=== PATIENT | male | born 1985 | race Caucasian/White ===

== ENCOUNTER 2024-06-02 22:45 | Emergency (ER) | payer BC ==
[~2024-06-02] VITALS: Ht 180.3 cm; Wt 78.0 kg
[2024-06-02 22:50] VITALS: PULSE 90; RESP 15; TEMP 98.3; O2SAT 98
[2024-06-02] MEDS: benzonatate 100mg capsule PO ONE (23:41)
[2024-06-02] MEDS: guaiFENesin ER 600mg tablet PO SCH (23:41)
--- NOTE | 2024-06-03 00:47 | Physician Documentation ---
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 He reports having congestion, a cough, general body aches, chills, and general malaise. No objective fever. No abdominal pain, nausea vomiting or diarrhea. Medication Reconciliation Allergies: Coded Allergies: No Known Allergies (Unverified , 06/02/24) Scheduled Benzonatate* (Benzonatate*), 1 CAP PO Q8H Past Medical History Smoking Status: Never smoker Review of Systems Constitutional: Reports: chills; Denies: fever ENT: Reports: nose congestion Respiratory: Reports: cough Physical Exam Vital Signs: Temperature: 98.3, Source: Temporal, Heart Rate: 90, Respiratory Rate: 15, Pulse Oximetry: 98, Weight: 78.000 Physical Exam General: This is a healthy-appearing young man lying in bed, no coughing noted during my exam HEENT: Atraumatic, wearing a mask Heart: Mild tachycardic, appears regular Lungs: Clear breath sounds bilateral, normal work of breathing, normal oxygen saturation on room air Abdomen: Soft, nondistended, nontender all quadrants Neuro: Alert and oriented, no focal deficits Psychiatric: Calm and cooperative with exam Progress Results/Orders Results/Orders Orders - LOLA SWANN MD Covid19 Binax Poc Result Entry (06/02/24 23:04) Completed Orders - LOLA SWANN MD Influenza Type A&B Rapid Test (06/02/24 23:04) Benzonatate Capsule (Tessalon Perles Cap (06/02/24 23:25) Guaifenesin Er Tablet (Mucinex Tablet) (06/02/24 23:30) Medications Received in ER Medications (Trade) Dose Ordered Sig/Yi Route PRN Reason Start Time Stop Time Status Last Admin Dose Admin (Tessalon Perles capsule) 200 mg ONCE ONCE PO 06/02/24 23:25 06/02/24 23:27 DC 06/02/24 23:41 200 MG (MuciNEX tablet) 1,200 mg Q12H PO 06/02/24 23:30 06/02/24 23:31 DC 06/02/24 23:41 1,200 MG Vital Signs 06/02/24 22:50 Temp 98.3 Pulse 90 Resp 15 Pulse Ox 98 Laboratory Tests Test 06/02/24 23:00 Influenza Type A (Rapid) Negative Influenza Type B (Rapid) Negative SARS-CoV-2 Antigen (Rapid) Positive A Medical Decision Making Differential Dx:Considerations: Include: Influenza, Pharyngitis-Viral, Pneumonia, URI, Other Differential Diagnosis Other viral syndrome Assessment The patient presents with 1 day of symptoms that all seem most consistent with a viral syndrome. He has no findings to suggest pneumonia or other dangerous infection requiring antibiotics. Viral swabs are positive for COVID-19. This appears consistent with his presentation. I do not feel that any further workup or testing is indicated. He will be treated with cough medications and other symptomatic treatment and given a work note. Departure Time of Disposition: 00:53 Disposition: 01 HOME / SELF CARE / HOMELESS Impression: Primary Impression: COVID-19 Condition: Stable Discharge Instructions: Upper Respiratory Infection, Adult Departure Forms: Excuse form Work or School Excused From: Work Excuse beginning now through the following date: Jun 05, 2024 May Return but still avoid physical Activity from now until: Jun 05, 2024 Referrals: NO PRIMARY CARE PROVIDER (PCP) Prescriptions Benzonatate* (Benzonatate*) 100 Mg Capsule 1 CAP PO Q8H for cough for 10 Days, #30 CAP Prov: LOLA SWANN MD 06/03/24 Comments You tested positive for COVID-19. Please use anti-inflammatories, cough and cold medications, drink plenty of fluids and get plenty of rest. Education Educated: Patient Educated regarding: diagnosis, treatment Signature Scribe Signature: [email or web address] Attestation: LOLA Estrada MD Jun 03, 2024 00:46
[2024-06-03] MEDS ORDERED: BENZ-38 PO (00:55)
== END 2024-06-03 01:07 | disposition home or self-care (01) ==
LOC: ER 22:46
DX: U07.1 COVID-19 (principal); Z79.899 Other long term (current) drug therapy
CPT/HCPCS: 36415; 87502; 87503; 87811; 99283

== ENCOUNTER 2024-06-14 15:55 | Inpatient (IN) | payer BC ==
[~2024-06-14] VITALS: Ht 180.3 cm; Wt 125.6 kg
[~2024-06-14 15:55] MED LIST: BENZ-38 PO
--- NOTE | 2024-06-14 16:03 | ELECTROCARDIOGRAPH REPORT ---
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 Xiang Sparks Measurements Intervals [place] Rate: 185 P: 0 SD: 0 QRS: 240 QRSD: 86 T: 28 QT: 267 QTc: 469 Interpretive Statements Atrial fibrillation with rapid V-rate Ventricular premature complex Left anterior fascicular block Abnormal R-wave progression, late transition Baseline wander in lead(s) V1,V2 Electronically Signed On 06-15-2024 17:20:[address] Xiang Sparks Please click the below link to view image of tracing.
[2024-06-14 16:22] LABS: BASOPHILS # (AUTO) 0.1 X10'3 (0-0.2); BASOPHILS % (AUTO) 0.9 % (0-1); EOSINOPHILS # (AUTO) 0.1 X10'3 (0-0.9); EOSINOPHILS % (AUTO) 1.1 % (0-6); HEMATOCRIT 45.9 % (42.0-52.0); HEMOGLOBIN 15.9 g/dl (14.0-17.9); LYMPHOCYTES # (AUTO) 2.7 X10'3 (1.1-4.8); MEAN CORPUSCULAR HEMOGLOBIN 30.3 PG (27.0-31.0); MEAN CORPUSCULAR HGB CONC 34.6 g/dL (33.0-36.5); MEAN CORPUSCULAR VOLUME 87.7 FL (78-98); MEAN PLATELET VOLUME 8.3 FL (7.4-10.4); MONOCYTES # (AUTO) 1.1 X10'3 (0-0.9); MONOCYTES % (AUTO) 13.7 % (2-12); NEUTROPHILS # (AUTO) 4.2 X10'3 (1.8-7.7); NEUTROPHILS % (AUTO) 51.3 % (42-75); PLATELET COUNT 321 X10'3 (140-440); RED BLOOD COUNT 5.24 X10'6 (4.70-6.10); WHITE BLOOD COUNT 8.1 X10'3 (4.5-11.0)
--- NOTE | 2024-06-14 16:28 | Physician Documentation ---
History of Present Illness ~ Chief Complaint: Palpitations Stated Complaint: AFIB Time Seen by MD: 16:13 Source: patient, RN/ HPI 39-year-old male no pertinent history presenting for rapid heart rate. He awoke from his daytime sleep with acute onset palpitations and shortness of breath. This began around 3:00 p.m. tonight. He has no history of similar symptoms. Denies any other symptoms. No leg pain or swelling. No anticoagulation. He has strong family history of AFib including in his brother Medication Reconciliation Allergies: Coded Allergies: No Known Allergies (Unverified , 06/14/24) Discontinued Medications Benzonatate* (Benzonatate*), 1 CAP PO Q8H Discontinued Reason: Auto Discontinued Review of Systems All Other Systems at this time: Reviewed and Negative Respiratory: Denies: shortness of breath Cardiovascular: Denies: chest pain Physical Exam Vital Signs: Temperature: 98.0, Heart Rate: 185, Respiratory Rate: 16, BP: 146/93, Pulse Oximetry: 96, Weight: 125.600 Physical Exam Diaphoretic Cardiac irregular rate no murmur Respiratory clear to auscultation bilaterally Lower extremity no edema Neuro awake alert oriented Procedures Cardioversion Cardioversion : Medications: Fentanyl Joules: 200 Resulting Rhythm: NSR Tolerated Procedure Well?: yes, no complications Progress Progress Note d/w hospitalist resident who agrees with plan for admission Results/Orders Results/Orders Orders - HALEY RIBEIRO MD Chest,Single View (06/14/24 15:59) Monitor (06/14/24 15:59) Saline Lock (06/14/24 15:59) Oxygen (06/14/24 15:59) Urinalysis (06/14/24 19:27) Page Hospitalist (06/14/24 19:57) Fill Out Med Reconciliation (06/14/24 19:57) Completed Orders - HALEY RIBEIRO MD Chest,Single View (06/14/24 15:59) Cbc/Diff (06/14/24 15:59) PBNP (06/14/24 15:59) Electrocardiogram (06/14/24 15:59) CMP (06/14/24 15:59) Hs Troponin I W Calculations (06/14/24 15:59) Hs Troponin I W Calculations (06/14/24 17:59) Hs Troponin I W Calculations (06/14/24 18:59) Diltiazem Iv (Cardizem Iv 5mg/Ml Inj.) (06/14/24 16:30) Fentanyl/Pf (Fentanyl 0.05 Mg/Ml Syringe (06/14/24 17:35) Ringers Solution, Lacted (Lactated Ringe (06/14/24 17:55) Etomidate Inj (Amidate Inj) (06/14/24 17:55) MG (06/14/24 16:15) TSH (06/14/24 16:15) Medications Received in ER Medications (Trade) Dose Ordered Sig/Yi Route PRN Reason Start Time Stop Time Status Last Admin Dose Admin (Cardizem IV 5mg/ ml inj.) 31 mg ONCE ONCE IV 06/14/24 16:30 06/14/24 16:31 DC 06/14/24 16:38 31 MG Lactated Ringer's 1,000 ml @ 1,000 mls/hr ONCE ONCE IV 06/14/24 17:55 06/14/24 18:54 DC 06/14/24 18:20 1,000 MLS/HR Vital Signs 06/14/24 06/14/24 06/14/24 06/14/24 16:03 16:15 16:30 16:38 Temp 98.0 Pulse 185 145 159 165 Resp 16 15 15 B/P (MAP) 146/93 131/106 (114) 115/81 (92) 131/106 Pulse Ox 96 97 96 O2 Flow Rate 0 0 06/14/24 06/14/24 06/14/24 06/14/24 16:55 16:57 17:20 18:07 Pulse 100 110 150 Resp 15 16 12 B/P (MAP) 125/66 (85) 117/84 (95) 131/91 Pulse Ox 97 98 98 O2 Delivery Nasal Cannula O2 Flow Rate 2.0 0 2.0 06/14/24 06/14/24 06/14/24 06/14/24 18:14 18:19 18:29 18:44 Pulse 120 105 98 76 Resp 18 18 12 13 B/P (MAP) 175/116 (135) 133/89 (104) 121/78 (92) Pulse Ox 94 98 98 95 O2 Delivery Nasal Cannula Nasal Cannula Nasal Cannula Room Air O2 Flow Rate 2.0 2.0 0 0 Laboratory Tests Test 06/14/24 16:15 06/14/24 18:20 06/14/24 19:13 White Blood Count 8.1 Red Blood Count 5.24 Hemoglobin 15.9 Hematocrit 45.9 Mean Corpuscular Volume 87.7 Mean Corpuscular Hemoglobin 30.3 Mean Corpuscular Hemoglobin Concent 34.6 Red Cell Distribution Width 13.0 Platelet Count 321 Mean Platelet Volume 8.3 Neutrophils (%) (Auto) 51.3 Lymphocytes (%) (Auto) 33.0 Monocytes (%) (Auto) 13.7 H Eosinophils (%) (Auto) 1.1 Basophils (%) (Auto) 0.9 Neutrophils # (Auto) 4.2 Lymphocytes # (Auto) 2.7 Monocytes # (Auto) 1.1 H Eosinophils # (Auto) 0.1 Basophils # (Auto) 0.1 CBC Comment Sodium Level 135 Potassium Level 4.0 Chloride Level 99 Carbon Dioxide Level 17.1 L Anion Gap 19 H Blood Urea Nitrogen 19 H Creatinine 1.26 H Estimated GFR/1.73 m2 64 BUN/Creatinine Ratio 15.1 Glucose Level 557 *H Calcium Level 8.8 Magnesium Level 1.9 Total Bilirubin 0.3 Aspartate Amino Transf (AST/SGOT) 32 Alanine Aminotransferase (ALT/SGPT) 56 Alkaline Phosphatase 177 H Troponin I High Sensitivity 4 6 7 Pro-B-Type Natriuretic Peptide < 30 Total Protein 7.0 Albumin 3.5 Globulin 3.5 Albumin/Globulin Ratio 1.0 L Thyroid Stimulating Hormone (TSH) 1.24 Chemistry Comments Troponin I High Sens Percent Delta 50 16 Troponin I Hi Sens Absolute Change 2 1 EKG/XRAY/CT/US/VASC/MRI EKG : Additional Comment EKG independently interpreted by myself time 4:01 p.m. indication palpitations atrial fibrillation RVR rate 185 normal axis normal intervals no ST or T-wave abnormalities Repeat EKG time 6:17 p.m. indication cardioversion sinus rhythm rate 100 normal axis normal intervals no ST or T-wave abnormalities Medical Decision Making Additional Information Atrial fibrillation, hyperglycemia Departure Disposition: ADMITTED INPATIENT Admitted to Inpatient Unit: to hospitalist Impression: Primary Impression: Afib Qualified Codes: I48.0 - Paroxysmal atrial fibrillation Additional Impressions: Atrial fibrillation with RVR Hyperglycemia DKA (diabetic ketoacidosis) Qualified Codes: E13.10 - Other specified diabetes mellitus with ketoacidos is without coma Additional Instructions: Please call your primary care physician in the morning to discuss outpatient management of your high blood sugar as well as your new onset atrial fibrillation. If you have any reoccurrence of your symptoms please return to the emergency department. Referrals: NO PRIMARY CARE PROVIDER (PCP) Critical Care Note Total Time (mins): 30 Critical Care Note The very real possibility of a deterioration of this patient's condition required the highest level of my preparedness for sudden, emergent intervention. I provided critical care services, which included medication orders, frequent reevaluations of the patient's condition and response to treatment, ordering and reviewing test results, and discussing the case with various consultants. Excludes time spent performing separately billable procedures. The critical care time associated with the care of the patient was 30 minutes in the management of new onset atrial fibrillation with RVR requiring cardioversion Signature Scribe Signature: ankit Attestation: HALEY Franklin MD June 14, 2024 16:28
[2024-06-14] MEDS: diltiazem 5mg/ml 5ml inj. IV ONE (16:38)
[2024-06-14 16:52] LABS: ALANINE AMINOTRANSFERASE 56 U/L (12-78); ALBUMIN 3.5 G/DL (3.4-5.0); ALKALINE PHOSPHATASE 177 IU/L (46-116); ANION GAP 19 (8-16); BILIRUBIN,TOTAL 0.3 MG/DL (0.1-1.0); BLOOD UREA NITROGEN 19 MG/DL (7-18); BUN/CREATININE RATIO 15.1 (10.0-20.0); CALCIUM 8.8 MG/DL (8.5-10.1); CHLORIDE 99 MMOL/L (99-107); CREATININE 1.26 MG/DL (0.60-1.10); PRO BRAIN NATRIURETIC PEPTIDE < 30 PG/ML (0-125); SODIUM 135 MMOL/L (135-145); TOTAL CARBON DIOXIDE 17.1 MMOL/L (24-32); eCRCL 85 ML/MIN; eGFR 64 ML/MIN
--- NOTE | 2024-06-14 17:02 | RADIOLOGY REPORT ---
CHEST RADIOGRAPH Indication: CP Technique: Single frontal view of the chest was obtained COMPARISON: None FINDINGS: Lines and Tubes: None Lungs: Clear Pleura: No effusion. No pneumothorax. Cardiomediastinal contours: Unremarkable Bones: Unremarkable IMPRESSION: No acute disease.
[2024-06-14 17:43] LABS: ASPARTATE AMINO TRANSFERASE 32 U/L (10-37)
[2024-06-14 17:45] LABS: GLUCOSE 557 MG/DL (70-104)
[2024-06-14] MEDS: fentaNYL/PF 50MCG/1 ML 2ML syringe IV ONE (18:19)
[2024-06-14] MEDS: ringers solution, lacted 1,000 ML IV ONE (18:20)
[2024-06-14] MEDS: etomidate 2mg/ml inj. IV ONE (18:20)
[2024-06-14 19:44] LABS: MAGNESIUM 1.9 MG/DL (1.5-2.4); THYROID STIMULATING HORMONE 1.24 ulU/ml (0.34-4.50)
[2024-06-14] MEDS ORDERED: magnesium sulf-water 4G/100mL 100 ML IV PRN (20:05)
[2024-06-14] MEDS ORDERED: magnesium sulf-water 2g/50mL 50 ML IV PRN (20:05)
[2024-06-14] MEDS ORDERED: magnesium hydroxide 30ml (MOM) UD suspension PO PRN (20:05)
[2024-06-14] MEDS ORDERED: potassium Cl 40MEQ/1/2NS 520ml 520 ML IV PRN (20:05)
[2024-06-14] MEDS ORDERED: magnesium Cl slow-release 64mg tablet PO PRN (20:05)
[2024-06-14] MEDS ORDERED: acetaminophen 325mg tablet PO PRN (20:05)
[2024-06-14] MEDS ORDERED: potassium Cl 20 mEq SR tablet PO PRN (20:05)
[2024-06-14] MEDS ORDERED: mag hydrox/Alum hydrox/simeth 30ml oral suspension PO PRN (20:05)
[2024-06-14] MEDS ORDERED: ondansetron/PF 4mg/2ml inj IV PRN (20:05)
[2024-06-14] MEDS ORDERED: morphine 2 MG/ML inj. syringe IV PRN ×2 (20:05)
[2024-06-14] MEDS: normal saline 1000ml 1,000 ML IV SCH (20:17)
[2024-06-14] MEDS ORDERED: TOPI-95 PO (20:30)
[2024-06-14] MEDS ORDERED: INDLA60C PO (20:30)
[2024-06-14 20:39] LABS: BILIRUBIN,URINE NEGATIVE (Neg); CLARITY,URINE CLEAR (Clear); COLOR,URINE YELLOW (Yellow); GLUCOSE, URINE >=1000 mg/dl (Neg); KETONES,URINE 15 mg/dl (Neg); LEUKOCYTE ESTERASE ,URINE NEGATIVE (Neg); NITRITES, URINE NEGATIVE (Neg); OCCULT BLOOD,URINE NEGATIVE (Neg); PH,URINE 5.5 (4.8-8.0); PROTEIN,URINE NEGATIVE (Neg); UROBILINOGEN,URINE 0.2 E.U/dL (0.2-1.0)
[2024-06-14 20:43] LABS: UA COLLECTION TYPE URINAL
[2024-06-14 20:46] LABS: BACTERIA,URINE NONE SEEN /HPF (Neg); RBC,URINE NONE SEEN /HPF (0-2); SQUAMOUS EPITHELIAL CELL,UR NONE SEEN /LPF (FEW); WBC,URINE NONE SEEN /HPF (0-4)
--- NOTE | 2024-06-14 21:23 | HISTORY AND PHYSICAL-Residence ---
History & Physical Providers to CC Resident Creating Document: MEY HAYADRIÁN LIZETH, RES ~ History of Present Illness Primary Medical Doctor: Dr. Akshat ROBINS [facility] Reason for Admit\Complaint: Palpitations History of Present Illness PCP: Dr. Akshat ROBINS [facility] 39-year-old male patient with past medical history of essential tremors came to the hospital with chief complaint of palpitations. The patient mentioned that during the afternoon he experienced palpitations who woke him up while he was resting. The patient normally follows his house rate with his phone and watch, and as soon as he evidenced this palpitations he noted a heart rate of 165. Associated to these palpitations the patient endorses mild chest tightness which subsided after his heart rate was controlled. As per patient this is the 1st time that he has experienced symptoms like these. The patient currently denies any chest pain, palpitations, shortness of breaths, urinary or intestinal symptoms. Allergies: Coded Allergies: No Known Allergies (Unverified , 06/14/24) Home Medications Home Medications Active Reported Topiramate 50 Mg Tablet 1 Tab PO BID Propranolol HCl 60 Mg Cap.sa.24h 1 Cap PO DAILY Past Medical History Past Medical History Essential tremors taking topiramate and propranolol. Past Surgical History Surgical History Comment None Past Social History Smoking: Quit greater than 1 year (The patient quit smoking four years ago. He used to smoke two packs a week for 16 years.) Alcohol Use: None (He used to drink socially. His last drink was one and half year ago) Drug Use: None Lives with: Other (Brother) Lives In: Home Occupation: employed ROS All Other Systems: Reviewed and Negative Respiratory: Denies: shortness of breath Cardiovascular: Denies: chest pain Exam Vitals: Vital Signs Date Time Temp Pulse Resp B/P (MAP) Pulse Ox O2 Delivery O2 Flow Rate FiO2 06/14/24 20:18 76 16 146/95 (112) 98 0 06/14/24 18:44 Room Air 06/14/24 16:03 98.0 Physical exam: General: Well alert, well oriented, not confused, not agitated, not in acute distress, well cooperated during the physical. HEENT: Conjunctive are pink, sclerae clear, no icterus, pupil is equal in both sides, reactive to light, no ear discharge, no pharyngeal erythema or an edema. Neck: Supple, no JVD, no lymphadenopathy and thyromegaly. Chest: Equal air entry on both lungs, no additional sounds no rhonchi no wheezing at the moment. Cardiovascular: S1-S2 regular sinus rhythm and, regular rate, no gallops, no rubs, no murmurs Abdomen: No visible peristalsis, Bowel sounds present on auscultation, soft, nontender, no guarding, no rigidity Extremities: No obvious deformities, no pitting edema bilaterally, capillary refill intact, peripheral pulsations are intact on both sides Central Nervous System: No focal neurological deficits, no motor or sensory weakness in all 4 extremities, could move all 4 extremities, 2+ deep tendon reflexes, negative Babinski. Musculoskeletal: No joint swelling, deformities, inflammations, and no scoliosis and back tenderness Skin: Warm and dry. Diagnostic Data Last Recorded Lab Results: 06/14/24 1615 06/14/24 1615 Advance Care Planning Advanced Care plannin - 30 Minutes (I spent a total of 17 minutes on reviewing various resuscitative measures/ACP with the patient at the time of admission. The patient has decided on a full code status.) Additional Plan Assessment and plan: 39-year-old male patient came to the hospital with chief complaint of palpitations. AFib with RVR: Chads Vasc score: 1 Pulmonary embolism-ruled out: The patient came to the hospital with chief complaint of palpitations. The patient underwent cardioversion in the emergency department and converted to sinus rhythm. Current heart rate 61. D-dimer: 0.37. The current indication for anticoagulation. Metoprolol succinate 25 mg daily. Uncontrolled diabetes mellitus: Diabetic ketoacidosis: Initial cause levels 557. Carbon dioxide 17.1, anion gap 19. Presence of ketones in urine. Hemoglobin A1c 10.5. Diabetic ketoacidosis protocol in place. Hypertriglyceridemia: Triglycerides 601. Gemfibrozil 600 mg b.i.d. Acute kidney injury likely secondary to renal tubular stasis: Creatinine 1.26, BUN/creatinine ratio 15.1. GFR 64 Follow-up urine lytes. LR at 250 mL/hour. Code status: Full code DVT prophylaxis: SCDs Analgesia/sedation: Morphine Line/tube: PIV GI prophylaxis: None Nutrition: Heart healthy diet PT: No Prognosis: Guarded Disposition: The patient will be admitted to PCU. Adrián Hay Internal Medicine Resident [facility] Date of Service: June 14, 2024 Billing Provider: MARY JOY MD,ADRIÁN STANLEY, RES June 14, 2024 21:23
[2024-06-14] MEDS ORDERED: glucagon, human recombinant 1mg kit SUBCUT PRN (22:55)
[2024-06-14] MEDS ORDERED: DEXTROSE 15 GM of carb/4 tabs (each vial/BOTTLE has 4 tablets) PO PRN ×2 (22:55)
[2024-06-14] MEDS ORDERED: dextrose 50%-water 50ml dispensing syringe IV PRN ×2 (22:55)
[2024-06-14 23:00] VITALS: BP 129/69; PULSE 70; RESP 16; TEMP 97.4; O2SAT 97
[2024-06-14 23:15] VITALS: RESP 16; O2SAT 97
[2024-06-14 23:15] LABS: HEMOGLOBIN A1C 10.5 % (4.5-6.2)
[2024-06-14 23:17] LABS: CHOL/HDL RATIO 5.3 (0.00-4.99); CHOLESTEROL 185 MG/DL (0-200); HDL CHOLESTEROL 35 MG/DL (35-60); LDL CHOLESTEROL 100 MG/DL (50-100); TRIGLYCERIDES 601 MG/DL (20-135)
[2024-06-14] MEDS: insulin glargine (Lantus) pen - multi-dose SQ SCH (23:54)
[2024-06-15] VITALS (8 sets, daily range): BP systolic 113–132; BP diastolic 63–83; PULSE 75–91; RESP 14–19; TEMP 97.7–98.3; O2SAT 96–99
[2024-06-15 01:32] LABS: D-DIMER 0.37 MG/L FEU (0-0.50)
[2024-06-15] MEDS ORDERED: sodium phosphate inj. 15 MMOL in dextrose 5%-water 250 ML IV PRN (01:45)
[2024-06-15] MEDS ORDERED: dextrose 50%-water 50ml dispensing syringe IV PRN ×3 (01:45→08:15)
[2024-06-15] MEDS ORDERED: potassium Cl 40MEQ/270ML bag 270 ML IV PRN (01:45)
[2024-06-15 01:52] LABS: ABG OXYGEN SATURATION 96.1 % (94.0-98.0); ABG PCO2 (T) 31.1 mmHg (35.0-48.0); ABG PH (T) 7.379 (7.350-7.450); ABG PO2 (T) 81.4 mmHg (83.0-108.0); ALLEN'S TEST Modified; FCOHb 0.4 % (0.5-1.5); FHHb 3.9 % (0.0-5.0); FMetHb 0.3 % (0.0-1.5); FO2Hb 95.4 % (94.0-98.0); MODE ROOM AIR; PATIENT TEMPERATURE 36.7; TOTAL HEMOGLOBIN 14.3 G/dl (13.5-17.5)
[2024-06-15 03:26] LABS: MAGNESIUM 1.6 MG/DL (1.5-2.4); PHOSPHORUS 3.3 MG/DL (2.3-4.5)
[2024-06-15] MEDS: Insulin Reg/NS 100units/100mL 100 ML IV SCH (03:41)
[2024-06-15] MEDS: ringers solution, lacted 1,000 ML IV SCH (03:43)
[2024-06-15] MEDS: potassium Cl 40MEQ/1/2NS 520ml 520 ML IV PRN (03:49)
[2024-06-15] MEDS: potassium CL 10mEq/100ml bag 100 ML IV ONE (04:32)
[2024-06-15] MEDS: magnesium sulf-water 2g/50mL 50 ML IV PRN (05:23)
[2024-06-15] MEDS ORDERED: INSULIN LISPRO 100 UNIT/ML INSULN.PEN MULTI-DOSE SQ SCH (07:00)
[2024-06-15 07:17] LABS: BASOPHILS # (AUTO) 0.1 X10'3 (0-0.2); BASOPHILS % (AUTO) 0.8 % (0-1); EOSINOPHILS # (AUTO) 0.1 X10'3 (0-0.9); EOSINOPHILS % (AUTO) 1.2 % (0-6); HEMATOCRIT 42.6 % (42.0-52.0); HEMOGLOBIN 14.7 g/dl (14.0-17.9); LYMPHOCYTES # (AUTO) 2.6 X10'3 (1.1-4.8); LYMPHOCYTES % (AUTO) 32.4 % (21-51); MEAN CORPUSCULAR HEMOGLOBIN 29.8 PG (27.0-31.0); MEAN CORPUSCULAR HGB CONC 34.5 g/dL (33.0-36.5); MEAN CORPUSCULAR VOLUME 86.4 FL (78-98); MEAN PLATELET VOLUME 8.1 FL (7.4-10.4); MONOCYTES % (AUTO) 12.1 % (2-12); NEUTROPHILS # (AUTO) 4.3 X10'3 (1.8-7.7); NEUTROPHILS % (AUTO) 53.5 % (42-75); PLATELET COUNT 302 X10'3 (140-440); RED BLOOD COUNT 4.93 X10'6 (4.70-6.10); RED CELL DISTRIBUTION WIDTH 13.3 % (11.5-14.5)
[2024-06-15 07:37] LABS: ALANINE AMINOTRANSFERASE 53 U/L (12-78); ALBUMIN 3.1 G/DL (3.4-5.0); ALKALINE PHOSPHATASE 110 IU/L (46-116); ANION GAP 9 (8-16); ASPARTATE AMINO TRANSFERASE 25 U/L (10-37); BILIRUBIN,TOTAL 0.3 MG/DL (0.1-1.0); BLOOD UREA NITROGEN 13 MG/DL (7-18); CALCIUM 8.2 MG/DL (8.5-10.1); CHLORIDE 110 MMOL/L (99-107); CREATININE 1.08 MG/DL (0.60-1.10); GLUCOSE 107 MG/DL (70-104); MAGNESIUM 2.2 MG/DL (1.5-2.4); POTASSIUM 3.4 MMOL/L (3.5-5.1); SODIUM 141 MMOL/L (135-145); TOTAL CARBON DIOXIDE 21.9 MMOL/L (24-32); TOTAL PROTEIN 6.3 G/DL (6.4-8.2); eCRCL 100 ML/MIN; eGFR 77 ML/MIN
[2024-06-15] MEDS: metoprolol succinate 25mg (24-HOUR) SR. Tablet PO SCH (07:53)
[2024-06-15] MEDS: gemfibrozil 600mg tablet PO SCH (07:53)
[2024-06-15] MEDS: docusate sod 100mg capsule PO SCH (07:54)
[2024-06-15] MEDS: K and/or MAG REPLACEMENT MC SCH (08:00)
[2024-06-15] MEDS ORDERED: OMEGA-3/DHA/EPA/FISH OIL 1 EACH CAPSULE.DR PO SCH (08:00)
[2024-06-15] MEDS ORDERED: DEXTROSE 15 GM of carb/4 tabs (each vial/BOTTLE has 4 tablets) PO PRN ×2 (08:15)
[2024-06-15] MEDS ORDERED: glucagon, human recombinant 1mg kit SUBCUT PRN (08:15)
[2024-06-15] MEDS: INSULIN LISPRO 100 UNIT/ML INSULN.PEN MULTI-DOSE SQ SCH ×2 (08:59→17:42)
[2024-06-15] MEDS: potassium Cl 20 mEq SR tablet PO PRN (10:00)
[2024-06-15 10:15] LABS: PHOSPHORUS 1.9 MG/DL (2.3-4.5)
--- NOTE | 2024-06-15 16:47 | CARDIOLOGY REPORT ---
APPROVED REPORT EXAM: Comprehensive 2D, Doppler, and color-flow Echocardiogram. 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 161.5 cm/s AoV VTI 28.9 cm AO Peak GR. 10.4 mmHg AO Mean GR. 5 mmHg LVOT VTI 25.80 cm LVOT Peak Toan. 123.5 cm/s REBECCA(VTI)/BSA 3.09 cm2/m2 REBECCA (VTI) 3.09 cm2 Mitral Valve MV E Velocity 104.5 cm/s MV Peak Gr. 7 mmHg MV DECEL TIME 216 ms MV A Velocity 46.9 cm/s MV PHT 56 ms E/A Ratio 2.2 MVA (PHT) 3.93 cm2 MV ARyd808.1 cm/s TDI Lateral E' P. V14.83 cm/s E/Lateral E' 7.0 Tricuspid Valve TR P. Velocity 230 cm/s RAP ESTIMATE 10 mmHg TR Peak Gr. 21 mmHg RVSP 31 mmHg LEFT VENTRICLE Normal LV size and wall thickness. Overall systolic function is normal. LVEF is 70-75%. RIGHT VENTRICLE Right ventricle is mildly dilated with adequate function. ATRIA Left atrium is mildly dilated. AORTIC VALVE Trileaflet AV appears mildly sclerotic without stenosis. No insufficiency. MITRAL VALVE Mild mitral annular calcification without stenosis. Trace regurgitation. TRICUSPID VALVE The tricuspid valve is normal in structure with trace regurgitation. PULMONIC VALVE The pulmonary valve is normal in structure with physiologic insufficiency. GREAT VESSELS The aortic root is normal in size. The ascending aorta is normal in size. IVC is normal in size. PERICARDIUM Normal pericardium. No effusion. Other Information Study Quality: Adequate
--- NOTE | 2024-06-15 18:45 | PROGRESS NOTE ---
Daily Progress Note Providers to CC ~ Antibiotic Timeout Antibiotic Ordered?: No Subjective The patient feels better though he is rather tired- I did speak at length to the patient about the complications of diabetes and did speak to the patient about watching out for high glucose foods including corn, rice and grains and potatoes. Patient has had a DKA in his in the sinus rhythm since being cardioverted Objective Vital Signs Date Time Temp Pulse Resp B/P (MAP) Pulse Ox O2 Delivery O2 Flow Rate FiO2 06/15/24 15:19 97.7 80 17 124/63 (83) 98 Room Air 06/15/24 08:00 0.0 Result Diagram: 06/15/24 0647 06/15/24 0647 Gen. No acute distress alert and oriented 4 Lungs clear to ascultation bilaterally, no wheezes rales or rhonchi appreciated Heart normal sinus rhythm no murmurs rubs or clicks noted Abdomen soft nontender bowel sounds are normoactive Lower extremities no clubbing cyanosis, nor edema appreciated bilaterally Coagulation Studies Laboratory Tests Test 06/15/24 01:10 D-Dimer 0.37 MG/L FEU (0-0.50) D-Dimer Comment Problem\Assessment\Plan Problems/Diagnosis: (1) Atrial fibrillation with RVR # AFib RVR- cardioverted now in sinus rhythm Chads Vasc2 score of 1 thus no need for anticoagulation at this time Metoprolol succinate 25 mg daily started # DKA On the DKA protocol is out of DKA # new onset diabetes mellitus Hemoglobin A1c of 10.5 And a hyper and hypoglycemic protocol I informed the patient he will likely require insulin when discharged # hypertriglyceridemia Triglycerides of 601 Gemfibrozil 600 mg b.i.d. is started # essential tremors Continue topiramate # hypokalemia On potassium replacement protocol Date of Service: June 15, 2024 Billing Provider: MELINDA STUART DO Common Visit Codes: [id number] INP/OBS CARE(HIGH) MELINDA STUART DO June 15, 2024 18:45
[2024-06-15 18:46] LABS: TOTAL PROTEIN,URINE RANDOM 15.3 MG/DL
[2024-06-15] MEDS: topiramate 25mg tablet PO SCH (19:27)
[2024-06-15] MEDS: insulin glargine (Lantus) pen - multi-dose SQ SCH (21:13)
[2024-06-16 02:00] VITALS: PULSE 52; RESP 13
--- NOTE | 2024-06-16 04:43 | ELECTROCARDIOGRAPH REPORT ---
[facility] Test Date: 2024-06-16 Test Time: 04:39:15 Pat Name: BOYD BUCK Department: [facility] 3S Patient ID: [facility]-[id number] Room: [place] [id number] [address] Gender: M Lab Assistant: : 1985 Requested By: ALBANIA MARTINEZ Order Number: [id number] Reading MD: Dr. MAXIMILIANO Hernandez Measurements Intervals [place] Rate: 55 P: 5 [place]: 150 QRS: -9 QRSD: 95 T: 37 QT: 402 QTc: 385 Interpretive Statements Sinus rhythm ST elev, probable normal early repol pattern Electronically Signed On 06-16-2024 19:49:[address] MAXIMILIANO Hernandez Please click the below link to view image of tracing.
[2024-06-16 06:48] LABS: BASOPHILS % (AUTO) 0.8 % (0-1); EOSINOPHILS # (AUTO) 0.1 X10'3 (0-0.9); EOSINOPHILS % (AUTO) 1.4 % (0-6); HEMATOCRIT 41.2 % (42.0-52.0); HEMOGLOBIN 14.3 g/dl (14.0-17.9); LYMPHOCYTES # (AUTO) 1.8 X10'3 (1.1-4.8); LYMPHOCYTES % (AUTO) 33.2 % (21-51); MEAN CORPUSCULAR HEMOGLOBIN 30.5 PG (27.0-31.0); MEAN CORPUSCULAR HGB CONC 34.7 g/dL (33.0-36.5); MEAN CORPUSCULAR VOLUME 87.9 FL (78-98); MEAN PLATELET VOLUME 8.5 FL (7.4-10.4); MONOCYTES # (AUTO) 0.7 X10'3 (0-0.9); MONOCYTES % (AUTO) 12.7 % (2-12); NEUTROPHILS # (AUTO) 2.8 X10'3 (1.8-7.7); NEUTROPHILS % (AUTO) 51.9 % (42-75); PLATELET COUNT 259 X10'3 (140-440); RED BLOOD COUNT 4.69 X10'6 (4.70-6.10); RED CELL DISTRIBUTION WIDTH 13.3 % (11.5-14.5); WHITE BLOOD COUNT 5.3 X10'3 (4.5-11.0)
[2024-06-16 06:55] VITALS: BP 126/72; PULSE 76; RESP 14; TEMP 97.3; O2SAT 100
[2024-06-16 07:17] LABS: ALANINE AMINOTRANSFERASE 64 U/L (12-78); ALBUMIN 3.1 G/DL (3.4-5.0); ALKALINE PHOSPHATASE 79 IU/L (46-116); ANION GAP 11 (8-16); ASPARTATE AMINO TRANSFERASE 39 U/L (10-37); BILIRUBIN,TOTAL 0.5 MG/DL (0.1-1.0); BLOOD UREA NITROGEN 9 MG/DL (7-18); BUN/CREATININE RATIO 9.6 (10.0-20.0); CALCIUM 8.4 MG/DL (8.5-10.1); CHLORIDE 105 MMOL/L (99-107); CREATININE 0.94 MG/DL (0.60-1.10); GLUCOSE 271 MG/DL (70-104); POTASSIUM 4.4 MMOL/L (3.5-5.1); SODIUM 137 MMOL/L (135-145); TOTAL CARBON DIOXIDE 21.2 MMOL/L (24-32); TOTAL PROTEIN 6.2 G/DL (6.4-8.2); eCRCL 115 ML/MIN; eGFR 90 ML/MIN
[2024-06-16 08:00] VITALS: RESP 14; O2SAT 100
[2024-06-16] MEDS: INSULIN LISPRO 100 UNIT/ML INSULN.PEN MULTI-DOSE SQ SCH (08:56)
[2024-06-16] MEDS ORDERED: METO-395 PO (11:22)
[2024-06-16] MEDS ORDERED: INSU100I57 SQ (11:22)
[2024-06-16] MEDS ORDERED: INSU3INS2 SQ (11:22)
[2024-06-16] MEDS ORDERED: NEED-136 SUBCUT (11:22)
[2024-06-16] MEDS ORDERED: GEMF600T PO (11:22)
[2024-06-16 11:48] VITALS: BP 133/82; PULSE 76; RESP 14; TEMP 98.1; O2SAT 97
--- NOTE | 2024-06-16 18:40 | DISCHARGE SUMMARY ---
Discharge Summary Providers to CC ~ Discharge Summary Admission Diagnosis: Palpitations Hospital Course DATE OF ADMISSION: 06/14/2024 DATE OF DISCHARGE: 06/16/2024 Discharge Diagnosis\\Comment: AFib RVR, DKA, new onset type 2 diabetes mellitus requiring insulin, hypertriglyceridemia, essential tremors, hypokalemia Operations\\Procedures: None Consultants: None Complications: None Condition on DC: Stable New Medications: Insulin Glargine/Lixisenatide (Soliqua 100 Unit-33 Mcg/ml Pen) 100 Unit-33 Mcg/Ml (3 Ml) Insuln.pen 14 UNITS SQ HS, #500 UNITS Insulin Lispro (Insulin Lispro Kashif Kwikpen) 100 Unit/Ml Ins.pen.hf 5 UNITS SQ ACHS, #600 UNITS [place], Insulin Disposable (Bd Ultra-Fine Pen Needle) 31 Gauge X 5/16" Dis.needle SYR SUBCUT Q6H, #90 1 Refill Gemfibrozil (Lopid) 600 Mg Tablet 600 MG PO BID, #60 TAB Metoprolol Succinate (Metoprolol Succinate) 25 Mg Tab.sr.24h 25 MG PO DAILY, #30 TAB.SR Continued Medications: Topiramate (Topiramate) 50 Mg Tablet 1 TAB PO BID Discontinued Medications: Propranolol HCl (Propranolol HCl) 60 Mg Cap.sa.24h 1 CAP PO DAILY Discharge Summary: The patient was admitted by resident physician ADRIÁN Larios under the supervision of MARY Guadarrama MD with the following HPI:"39-year-old male patient with past medical history of essential tremors came to the hospital with chief complaint of palpitations. The patient mentioned that during the afternoon he experienced palpitations who woke him up while he was resting. The patient normally follows his house rate with his phone and watch, and as soon as he evidenced this palpitations he noted a heart rate of 165. Associated to these palpitations the patient endorses mild chest tightness which subsided after his heart rate was controlled. As per patient this is the 1st time that he has experienced symptoms like these. The patient currently denies any chest pain, palpitations, shortness of breaths, urinary or intestinal symptoms." The patient after cardioversion had no further episodes of AFib the patient was on propranolol at home for essential tremors this was discontinued and the patient was started on metoprolol succinate he has a low Martínez Vasc2 score of 1 and thus does not require anticoagulation at this time I did inform the patient that in the future he may require anticoagulation since he has a diabetic as well. The patient was able to get out of DKA by the morning of the in his blood sugars remained improved however remained in the 200s. The patient was discharged with a Lantus insulin pen 14 units at night and a lispro pen with a sliding scale that was given to the patient. Patient also has hypertriglyceridemia with triglyceride level of 601 the patient was started on gemfibrozil. The patient has a acute kidney injury present on admission possibly secondary to vasomotor nephropathy resolved with IV fluid resuscitation and his creatinine was initially 1.26 on day discharge was 0.94. The patient felt ready to be discharged and was medically cleared to be discharged on 06/16/2024 The patient was seen and evaluated on day of discharge. Time spent on discharge 40 minutes *Problems/Diagnosis: (1) Atrial fibrillation with RVR Status: Acute Total Time Spent on D/C: > 30 Minutes Date of Service: June 16, 2024 Billing Provider: MELINDA STUART DO Common Visit Codes: 69196-SVW/OBS DISCH DAY >30min MELINDA STUART DO June 16, 2024 18:40
[2024-06-16] MEDS ORDERED: insulin glargine (Lantus) pen - multi-dose SQ SCH (21:00)
== END 2024-06-16 12:14 | disposition home or self-care (01) | DRG 308 ==
LOC: ER 15:55 → ED HOLD 20:05 → PCU 3S 23:27
PROVIDERS: ADMIT Surgery; ATTEND Family Medicine
PROC: 5A2204Z Restoration of Cardiac Rhythm, Single (ICD-10-PCS; principal; 2024-06-14)
DX: I48.0 Paroxysmal atrial fibrillation (principal); E11.10 Type 2 diabetes mellitus with ketoacidosis without coma; N17.0 Acute kidney failure with tubular necrosis; E78.1 Pure hyperglyceridemia; G25.0 Essential tremor; E87.6 Hypokalemia
CPT/HCPCS: 36415; 36600; 71045; 80053; 80061; 81001; 82570; 82803; 82948; 83036; 83735; 83880; 83930; 83935; 84100; 84156; 84300; 84443; 84484; 84540; 85018; 85025; 85379; 87081; 87207; 93005; 93306; 96361; 96374; 99291; A4620; G0378; J1815; J3480; J3490; J7030; J7040; J7042; J7120

== ENCOUNTER 2024-12-03 04:05 | Emergency (ER) | payer BC ==
[~2024-12-03] VITALS: Ht 332.7 cm; Wt 104.5 kg
[~2024-12-03 04:05] MED LIST changes: -BENZ-38 PO; +GEMF600T PO; +INSU100I57 SQ; +INSU3INS2 SQ; +METO-395 PO; +NEED-136 SUBCUT; +TOPI-95 PO
[2024-12-03 04:44] LABS: INFLUENZA TYPE A ANTIGEN RAPID NEGATIVE (Negative); INFLUENZA TYPE B ANTIGEN RAPID NEGATIVE (Negative)
--- NOTE | 2024-12-03 05:06 | RADIOLOGY REPORT ---
CHEST RADIOGRAPH Indication: cough, fever, sob Technique: 2 views of the chest were obtained. Comparison: DI CHEST,SINGLE VIEW on DOS: 07/10/24, DI CHEST,SINGLE VIEW on DOS: 06/14/24, DI CHEST,SINGLE VIEW on DOS: 12/01/22 IMPRESSION: Heart appears normal in size. The lungs appear clear without focal airspace opacity, effusion, or pneumothorax.
[2024-12-03] MEDS ORDERED: BENZ-38 PO (05:29)
[2024-12-03] MEDS ORDERED: METH4TAB81 PO (05:29)
[2024-12-03] MEDS ORDERED: ALBU18HF2 INH (05:29)
--- NOTE | 2024-12-03 05:29 | Physician Documentation ---
History of Present Illness ~ Chief Complaint: Cold, cough & congestion Stated Complaint: COLD/COUGH CONGESTION Time Seen by MD: 04:13 Primary Medical Doctor: Dr. Akshat BENDERSTA [facility] Mode of Arrival: POV, Ambulatory HPI This is a 39-year-old gentleman with no significant past medical history who presents for evaluation of cough, nasal congestion, sore throat, and chest pain with a coughing that is started about 14 hours ago without any obvious trigger provocation. 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 Denies chest pain at baseline, denies shortness a breath. Does report productive cough with a yellow sputum and nasal congestion with a yellow snot. Reports subjective fever. Denies any concerns for tobacco, alcohol or illicit substances use Medication Reconciliation Allergies: Coded Allergies: No Known Allergies (Unverified , 09/25/24) Scheduled Gemfibrozil (Lopid), 600 MG PO BID Insulin Glargine/Lixisenatide (Soliqua 100 Unit-33 Mcg/ml Pen), 14 UNITS SQ HS Insulin Lispro (Insulin Lispro Kashif Kwikpen), 5 UNITS SQ ACHS Metoprolol Succinate (Metoprolol Succinate), 25 MG PO DAILY Topiramate (Topiramate), 1 TAB PO BID, (Reported) Durable Medical Equipment Towanda, Insulin Disposable (Bd Ultra-Fine Pen Needle), SYR SUBCUT Q6H, (DME) Past Medical History Past Medical History: No Pertinent History Past Surgical History: no surgical history Smoking Status: Current every day smoker Alcohol Use: None Drug Use: none Lives with: Other Lives In: Home Occupation: employed Review of Systems ROS 10 point review of systems was performed and unless noted above in HPI is negative for acute process/complaint. Physical Exam Vital Signs: Temperature: 99.5, Source: Oral, Heart Rate: 104, Respiratory Rate: 17, BP: 144/97, Pulse Oximetry: 97, Weight: 104.540 Oxygen Flow Rate: 0 Physical Exam GENERAL: Awake, alert, oriented, GCS 15, no apparent distress, non-toxic appearing, answers questions, follows commands appropriately. Examined in the bed 10. HEENT: Atraumatic, normocephalic, obvious nasal congestion, pupils equal, extraocular muscles intact, sclerae anicteric, mucus membranes moist, oropharynx is clear, no stridor. NECK: supple, full active range of motion, trachea midline, no thyromegaly, no lymphadenopathy, no JVD. CARDIOVASCULAR: Slightly tachycardic and regular rate/rhythm, no murmurs/gallops/rubs, Pulses are 2+ in all extremities and symmetric. Capillary refill less than 2 seconds. PULMONARY: Nonlabored, good air movement ,no respiratory distress, speaking in full sentences, coarse breath sounds bilaterally, bilateral expiratory wheezing, no ronchi, no rales, no accessory muscle use. GASTROINTESTINAL: Soft, non-tender, non-distended, normal active bowel sounds, no organomegaly, no pulsatile masses, no CVA tenderness. NEUROLOGIC: Lucid with normal mental status. Normal facial symmetry. Moves all extremities symmetrically and with purpose. No truncal ataxia. Speech is fluid without evidence of dysarthria or aphasia, no focal deficits appreciated. MUSCULOSKELETAL: There is full range of motion of all extremities. There is no joint pain or joint swelling or joint erythema. There is no muscle pain or tenderness or swelling. EXTREMITIES: warm, well-perfused, no cyanosis, no clubbing, no edema, no acute deformities. Skin: warm, dry, no rashes or lesions, no jaundice, no petechiae orpurpura. No ecchymosis. PSYCHIATRIC: Normal affect, normal insight, normal concentration. Focused exam: [] Progress Results/Orders Results/Orders Orders - RAVINDER LEMON DO Covid19 Binax Poc Result Entry (12/03/24 04:13) Chest,Two Views (12/03/24 04:13) Completed Orders - RAVINDER LEMON DO Influenza Type A&B Rapid Test (12/03/24 04:13) Chest,Two Views (12/03/24 04:13) Benzonatate Capsule (Tessalon Perles Cap (12/03/24 04:15) Medications Received in ER Medications (Trade) Dose Ordered Sig/Yi Route PRN Reason Start Time Stop Time Status Last Admin Dose Admin (Tessalon Perles capsule) 200 mg ONCE ONCE PO 12/03/24 04:15 12/03/24 04:16 DC 12/03/24 04:25 200 MG Vital Signs 12/03/24 12/03/24 12/03/24 04:09 04:13 04:17 Temp 99.5 Pulse 104 Resp 24 17 B/P (MAP) 144/97 Pulse Ox 97 O2 Flow Rate 0 Laboratory Tests Test 12/03/24 04:26 Influenza Type A Antigen Negative Influenza Type B Antigen Negative SARS-CoV-2 Antigen (Rapid) Negative Medical Decision Making Additional information obtaine: N/A Findings Facility Status: ED Holds, RME process The plan was discussed with the patient, who demonstrates clear understanding of the plan and is in agreement with the plan unless otherwise noted in the chart. All questions have been answered, all concerns were addressed unless otherwise documented. I was available throughout their ED stay for frequent reassessment and questions. Differential Diagnoses (considered and possible or likely): [COVID, influenza, bacterial pneumonia, upper respiratory infection with the top of the viruses, b ronchitis, asthma, unlikely pneumothorax.] ??Differential Diagnoses (considered and unlikely, not requiring evaluation currently): [Unlikely to represent ACS or CHF] MDM Data Please see HPI for the following: Independent Historians and external Records Review. Historian: [Patient] Independent Historians: ?[None] Medication Management: [Reviewed medication list] Social History and determinants: [Reviewed] Please see the body of the note for the following: Any independent interpretations of ECG, imaging studies. All vitals signs/haemodynamics, ordered tests were independently reviewed and interpreted by myself. Nursing triage complaint and vitals reviewed, additional nursing notes were reviewed as available and I agree unless otherwise noted or documented in contradiction in the chart Vital Signs: Independently reviewed Labs: Independently interpreted Imaging: Independently interpreted Old Medical Records: Independently reviewed, see HPI for relevant summary and information Pulse Oximetry: [97%] interpreted as [normal on room air] by me Additionally notably showing: [Hemodynamically stable. COVID and influenza negative. Chest x-ray is unremarkable.] Tests considered but not ordered include: [Blood work has been considerably does not appear to be necessary given his clinical condition] Social Determinants of Health Impact: Patient was evaluated in [facility] [place] to healthcare due to below par ratio of patient to medical providers. [] Comorbid Conditions Impacting Present Evaluation and Care/Treatment: [None] Management Discussions with other Healthcare Providers: [None] Treatment and Disposition Medication Management (Given or considered): [Breathing treatment, steroids, antitussives]. See EMR for details Consideration for Hospitalization/Escalation/Deescalation of Care: Admission for observation has been considered, [however the patient is able to tolerate p.o., their symptoms are controlled, they are able to rely on oral medications, and their chief complaint/diagnosis can be managed on outpatient basis.] ?ED Course:?[Doing better.] ?Shared decision making: Patient is hemodynamically stable for discharge home with follow with their primary care provider. [ ] Specific and cautious return precautions provided and discussed with full understanding. Any incidental findings were also discussed and follow up recommendations given. [] All questions answered. Patient/family were able to verbalize back return precautions. Patient/family agree to plan. Copies of imaging and laboratory studies were provided. Code status:?FULL Please see the full Electronic Medical Record for full details of nursing documentation, medications list, other records of complete past medical history and conditions, vital signs, laboratory studies, and any radiologic study interpretations by radiologists. Portions of this note were completed using [employer] dictation software and as a result there may exist minor errors in spelling. I have reviewed elements of past family and social history and agree as included in note. Differential Dx:Considerations: Include: Other (See the body of main note) Departure Time of Disposition: 05:29 Disposition: 01 HOME / SELF CARE / HOMELESS Impression: Primary Impression: Acute bronchitis Additional Impressions: Acute respiratory infection Wheezing Condition: Improved Discharge Instructions: Upper Respiratory Infection, Adult Referrals: NO PRIMARY CARE PROVIDER (PCP) Prescriptions Methylprednisolone (Medrol Dosepak) 4 Mg Tab.ds.pk 0 PO UD, #21 TAB 0 Refills take 6 Pills Day 1, 5 Pills Day 2, 4 Pills Day 3, 3 Pills Day 4, 2 Pills Day 5 and 1 pill Day 6 Prov: RAVINDER LEMON DO 12/03/24 Benzonatate* (Benzonatate*) 100 Mg Capsule 1-2 CAP PO Q6H PRN for cough, #30 CAP Prov: RAVINDER LEMON DO 12/03/24 Albuterol Sulfate (Ventolin Hfa) 90 Mcg Hfa.aer.ad 2 PUFFS INH Q4HPRN PRN for wheezing for 30 Days, #18 GM 0 Refills Prov: RAVINDER LEMON DO 12/03/24 Education Educated: Patient Educated regarding: diagnosis, treatment, prognosis, need for follow up Signature Scribe Signature: No scribe Attestation: Date: Dec 03, 2024 Time: 05:29 This note accurately reflects clinical decisions, work performed by myself, Ravinder Lemon, RAVINDER MARTINEZ DO Dec 03, 2024 05:29
[2024-12-03] MEDS: ipratropium/albuterol 3ml nebule NEB STA (06:34)
[2024-12-03 06:35] VITALS: PULSE 85; RESP 16; O2SAT 95
[2024-12-03 06:42] VITALS: PULSE 86; RESP 16; O2SAT 98
[2024-12-03 06:57] VITALS: BP 138/74; PULSE 97; TEMP 99.5; O2SAT 97
[2024-12-03 07:00] VITALS: RESP 20
== END 2024-12-03 07:20 | disposition home or self-care (01) ==
LOC: ER 04:06
DX: J20.9 Acute bronchitis, unspecified (principal); F17.200 Nicotine dependence, unspecified, uncomplicated; Z20.822 Contact with and (suspected) exposure to COVID-19
CPT/HCPCS: 36415; 71046; 87804; 87811; 94640; 99284; J7512; 94760